=== PATIENT | female | born 1945 | race Caucasian/White ===

== ENCOUNTER 2025-05-22 01:31 | Emergency (ER) | payer SELFPAY ==
[2025-05-22 01:33] VITALS: BP 129/71
--- NOTE | 2025-05-22 01:48 | ED.GENMED ---
History of Present Illness
General
Chief Complaint: Back Pain
Source: patient
Exam Limitations: none
Time Seen by Provider: 05/22/25 01:43
Nursing documentation reviewed up to this point in time: agreed with
History of Present Illness
History of Present Illness:
Note:
CHIEF COMPLAINT(S)
Back pain after a fall.
HISTORY OF PRESENT ILLNESS
The patient is a 79-year-old female with a past medical history of rheumatoid arthritis, afib on eliquis, who presents with back pain following a fall some weeks ago. She reports that a few weeks ago, she slipped on a puddle in her kitchen falling
on her back. She was seen by a doctor in an ER at that time in [place] and was told she had fractures in her back.She reports that she recently moved from [place]. She reports that the pain is localized to the back and does not radiate to
the front or down the legs. She has been utilizing a cane to aid in mobility outside, but is able to ambulate indoors without it. The patient describes the pain as persistent and notes it is aggravated by activity. She was previously prescribed
Oxycodone 10 mg by her family doctor which provided significant relief in the past but she does not use this chronically. The patient is using Lidocaine patches for the area of pain. She denies numbness, tingling, or urinary incontinence associated
with the back pain. There have been no episodes of vomiting, abdominal pain, or neck pain. The pain has not had any gait abnormalities.
Patient did also take ibuprofen but is concerned as she is not supposed be taking it with her blood thinner. She reports that this did not help with her pain. She has not had any urinary incontinence, genital paresthesias, constipation, abdominal
pain, chest pain, shortness of breath. Patient reports that the pain does not radiate to her pelvis or her abdomen. She has no associated burning with urination, urinary frequency, blood in her urine. improved since the injury. The patient
mentions a history of falls, but no further falls have occurred since the last incident. She is currently staying with family and has arrived here with their help. She did not drive herself. Patient reports that with her history of rheumatoid
arthritis, she has also been complaining of swelling in both of her hands and knee pain. She currently is not on any medications for her RA.
PAST MEDICAL AND SURGICAL HISTORY
Currently utilizing Eliquis for atrial fibrillation. Reports having rheumatoid arthritis affecting her back, but does not specify the location of pain.
CHRONIC MEDICAL CONDITIONS SIGNIFICANTLY AFFECTING CARE
The patient has a history of atrial fibrillation and rheumatoid arthritis, which are relevant to her current condition and management.
SOCIAL DETERMINANTS AFFECTING HEALTH
The patient reports not having health insurance but anticipates obtaining it in June. She currently lacks a family doctor and requires a referral.
MEDICATIONS
Currently on Eliquis for atrial fibrillation. Previously prescribed Oxycodone 10 mg for pain management post-fall.
REVIEW OF SYSTEMS
- Musculoskeletal: Reports severe back pain localized to the area of injury.
- Neurological: No numbness or tingling.
- Genitourinary: No urinary incontinence.
- Gastrointestinal: No abdominal pain or vomiting.
PHYSICAL EXAM
General: Alert, no acute distress.
Skin: Warm, dry
No flank ecchymosis or hematoma
Head: Normocephalic, atraumatic.
Neck: Supple, trachea midline.
Eye, ears, nose, mouth and throat: Oral mucosa moist.
Cardiovascular: Regular rate and rhythm, no murmurs. Normal peripheral perfusion, no edema.
Respiratory: Respirations are non-labored.
Gastrointestinal: Abdomen nondistended. No tenderness to palpation, no pulsatile abdominal mass.
Musculoskeletal: Midline lumbar spinal tenderness with some paraspinal tenderness. Normal range of motion, normal strength.
Neurological: Alert and oriented to person, place, time, and situation. No focal neurological deficit observed. 5/5 strength in bilateral lower extremities. 2+ DP and PT pulses.
Psychiatric: Cooperative, appropriate mood & affect.
PLAN
1. Repeat X-rays to assess for any progression or complication of injury.
2. Prescribe pain medication for management.
3. Provide referral to maintenance specialist.
4. Assist in obtaining a family doctor once insurance is acquired.
Patient reports that she is allergic to Tylenol. She is on Eliquis for A-fib. Patient reports that she tolerates oxycodone well and reports that she has previously used this for her other injuries. Patient is unsure what her previous fractures
were. She has not had another fall since. Considering midline back discomfort today, will send for x-rays. Patient already has a lidocaine patch on which has helped her symptoms. Patient recently moved from [place] to move in with her family.
Patient reports that her family dropped her off this evening. Patient reports that her insurance kicks in in June and she is requesting a referral for primary care provider as well as orthopedist.
DIFFERENTIAL DIAGNOSIS
The Differential Diagnosis includes, in no particular order and is not limited to:
1. Vertebral compression fracture
2. Muscular strain
3. Spinal stenosis
4. Osteoporosis-related fragility fracture
5. Degenerative disc disease
6. Lumbar spondylosis
7. Sciatica (despite the absence of radiating pain)
8. Rheumatoid arthritis flare
9. Soft tissue injury
10. Mechanical back pain
CHART REVIEW
No prior ER physician documentation to review
No discharge summary in [facility] to review
MDM/DISPOSITION
79-year-old female with a past medical history of A-fib on Eliquis, rheumatoid arthritis, presents to the ER today with concerns of pain in her back following a fall a few weeks ago. She reports no further falls in the interim. On physical exam
she is well-appearing no acute distress. She has midline spinal tenderness. She has no neurologic deficits. No pulsatile abdominal mass. Suspect ongoing pain from osteoarthritis as well as lumbar compression fractures. Patient also has
associated pain in the Hands and deformities related to rheumatoid arthritis and I did recommend prednisone course however patient is concerned about the cost of these 2 medications together as she does not have insurance and is declining steroids.
She is requesting oxycodone as she is limited in what she can take with history of Tylenol allergy as well as history of no NSAID use with the Eliquis. Will give a few oxycodone tablets prescription but did stressed that she will need to
establish care and likely see pain management going forward. She reports that her insurance kicks in next month I did provide referral for an [facility] clinic in the interim. Patient stable for discharge.
Review of Systems
Review of Systems
All Other Systems: ROS reviewed and negative except as documented in HPI and ROS
Phy Exam
Physical Exam
Physical Exam:
see hpi
Course
Orders/Labs/Results
Orders:
Orders
05/22/25 02:06
CR Lumbar Spine 2 Or 3 Views Urgent
Comment:
Reason For Exam: midline lumbar spinal pain
CR Sacrum/coccyx Min 2 View Urgent
Comment:
Reason For Exam: sacral pain
05/22/25 02:07
Oxycodone [Roxicodone] 5 mg PO NOW STA
Vital Signs
Initial and Last Documented VS:
Initial Vital Signs
Temp Pulse Resp BP Pulse Ox
97.7 F 85 18 129/71 93
05/22/25 01:33 05/22/25 01:33 05/22/25 01:33 05/22/25 01:33 05/22/25 01:33
Last Documented Vital Signs
Temp Pulse Resp BP Pulse Ox
97.7 F 85 18 129/71 93
05/22/25 01:33 05/22/25 01:33 05/22/25 01:33 05/22/25 01:33 05/22/25 01:50
*Pulse Oximetry
SaO2: 93
Oxygen Mode of Delivery: Room air
Patient hypoxic: no
*Critical Care Note
Total Time (30-74mins, 75-104mins- exclusive of procedures): Not Applicable
ED Attending Note
-
Portions of this chart may have been created with voice recognition software.� Occasional wrong word or��sound alike� substitutions may have occurred due to the inherent limitations of voice recognition software.
Discharge Plan
Departure
Patient Disposition: Home (Routine Discharge)
Date of Disposition: 05/22/25
Time of Disposition: 03:37
Patient with high blood pressure during this ER visit?: Yes
Condition: Good
Discharge Problem:
Compression deformity of vertebra, Arthritis
Instructions: Low Back Pain (DC), BLOOD PRESSURE
Prescriptions:
New
oxycodone 5 mg capsule
5 mg PO Q6H PRN (Reason: Pain) Qty: 8 0RF
Referrals:
[facility] [Outside] - Call in 1-3 days for appt
Joseph Carpenter MD [Active, Anesthesiology] - Call in 1-3 days for appt
Nahum Dawn MD [Active, Orthopedics] - Call in 1-3 days for appt
Leroy Atkins DO [[facility]] - Call in 1-3 days for appt
NONE,* [Family Provider, Internal Medicine]
Activity Restrictions/Additional Instructions:
You have been provided with referral for the [facility] to bridge the time until your insurance kicks in. Also been given a referral for a new orthopedist and family doctor. You have also been given referral for pain management.
I would continue to use the lidocaine patches as needed.
Oxycodone tablets have been sent to her pharmacy.
PLEASE RETURN TO ER SHOULD YOU DEVELOP INABILITY TO AMBULATE, LOSS OF SENSATION IN YOUR LOWER EXTREMITIES, URINARY OR FECAL INCONTINENCE, NUMBNESS OR TINGLING IN THE GENITAL REGION, FEVERS OR CHILLS, OR ANY OTHER SIGNS OR SYMPTOMS RECENTLY.
Interventions
Interventions:
*Risk Screen - Suicide Last Done: 05/22/25 01:33
*General Assessment Last Done: 05/22/25 01:33
*Neglect/Abuse Screening Last Done: 05/22/25 01:33
*ED- Fall Risk Assessment Last Done: 05/22/25 01:55
*ED COVID-19 Vaccine History Last Done: 05/22/25 01:55
*ED Influenza Vaccine History Last Done: 05/22/25 01:55
*Nursing Disposition Last Done: 05/22/25 04:11
ED-Musculoskeletal Assessment Last Done: 05/22/25 01:58
Discharge Date and Time
Discharge Date/Time: 05/22/25 04:14
Print Language: GREENLANDIC
[2025-05-22 01:57] VITALS: BMI 28.1
[2025-05-22] MEDS: ROXICODONE 5 MG PO (02:13)
== END 2025-05-22 04:14 | disposition home or self-care (01) ==
LOC: EMR 01:31
PROVIDERS: EMERGENCY PHYSICIAN Emergency Medicine
DX: M48.56XA Collapsed vertebra, not elsewhere classified, lumbar region, initial encounter for fracture (principal); M53.3 Sacrococcygeal disorders, not elsewhere classified; W01.0XXA Fall on same level from slipping, tripping and stumbling without subsequent striking against object, initial encounter; M06.9 Rheumatoid arthritis, unspecified; I48.91 Unspecified atrial fibrillation; Z79.01 Long term (current) use of anticoagulants; Z91.81 History of falling; Z88.6 Allergy status to analgesic agent
CPT/HCPCS: 99284; 72100; 72220